=== PATIENT | male | born 1985 | race Hispanic/Latino ===

== ENCOUNTER 2021-12-06 15:06 | Emergency (ER) | payer SELFPAY ==
--- NOTE | 2021-12-06 16:57 | RAD REPORT ---
EXAM DESCRIPTION: RAD - Knee Left 3 View - 12/06/2021 4:28 pm CLINICAL HISTORY: PAINfollowing fall COMPARISON: No comparisons FINDINGS: No fracture, dislocation or periosteal reaction.No joint effusion seen. No joint space ar rowing. No soft tissue abnormality. IMPRESSION: Negative left knee. Clinical concerns for internal derangement or occult bony injury could be further assessed with MR im aging.
--- NOTE | 2021-12-06 16:58 | RAD REPORT ---
EXAM DESCRIPTION: RAD - Tib Fib Left - 12/06/2021 4:28 pm CLINICAL HISTORY: Leg pain following fall COMPARISON: None. FINDINGS: No fracture is identified. There is no dislocation or periosteal reaction noted. No acute or suspicious bony finding. No foreign body or other soft tissue abnormality. IMPRESSION: Negative left tibia & fibula examination.
--- NOTE | 2021-12-06 16:58 | RAD REPORT ---
EXAM DESCRIPTION: RAD - Ankle Left 3 View - 12/06/2021 4:28 pm CLINICAL HISTORY: PAINfollowing fall COMPARISON: No comparisons FINDINGS: No fracture, dislocation or periosteal reaction. No joint effusion seen. No joint space na rrowing. No soft tissue abnormality. There is minimal plantar spur present. IMPRESSION: Negative left ankle for fracture or other acute finding.
--- NOTE | 2021-12-06 17:28 | RAD REPORT ---
EXAM DESCRIPTION: US - Extremity Venous Uni Ltd - 12/06/2021 5:18 pm CLINICAL HISTORY: PAIN COMPARISON: None. TECHNIQUE: Real-time sonographic evaluation of the left lower extremity deep venous system was perfo rmed. FINDINGS: Normal compressibility, flow augmentation, phasic flow and spontaneous flow are identified in the left lower extremity common femoral, superficial femoral, popliteal and posterior tibial vein s. No intraluminal filling defects seen. IMPRESSION: No DVT in the left lower extremity.
--- NOTE | 2021-12-06 17:30 | RAD REPORT ---
EXAM DESCRIPTION: US - Lower Extremity Artery Uni Ltd - 12/06/2021 5:18 pm CLINICAL HISTORY: Pain COMPARISON: No comparisons TECHNIQUE: Doppler evaluation of the left lower extremity arterial tree performed. Waveforms and izabel ocity values were obtained along with visual inspection. FINDINGS: Triphasic waveform pattern seen in the left common femoral and superficial femoral arterie s. A more dampened, biphasic waveform pattern is seen in the left popliteal, dorsalis pedis and popli teal arteries. No occlusion or focal flow restricting lesions seen. No measurable atherosclerotic wal l changes. IMPRESSION: Left lower extremity arterial study shows no significant or suspicious finding.
--- NOTE | 2021-12-06 17:53 | RAD REPORT ---
EXAM DESCRIPTION: CT - Lower Ext Wo Con W/ Mpr - 12/06/2021 5:41 pm CLINICAL HISTORY: ankle injury, leg pain COMPARISON: No comparisons TECHNIQUE: Axial noncontrast 2 millimeter thick images of the obtained from the proximal tibial shaf t through the plantar surface of the left foot. Sagittal and coronal reconstruction images were gener ated and reviewed. All CT scans are performed using dose optimization technique as appropriate and may include automate d exposure control or mA/KV adjustment according to patient size. FINDINGS: No bone or joint abnormality identified. No air or foreign body in the soft tissues. No ab scess or drainable fluid collection. Edema is seen in the subcutaneous fatty tissues of the distal le ft leg and ankle. No skeletal muscle abnormality seen. No significant ligamentous injury suspected. The distal, horizontal portion of the tibialis posterior tendon appear slightly thickened and shaggy. Injury to the tendon cannot be excluded. CT imaging is limited in tendon assessment. The remaining t endons of the foot and ankle show no suspicious or unexpected findings. IMPRESSION: No bone or joint abnormality seen. No abscess, foreign body, air or other emergent soft tissue finding. Edema in the subcutaneous fatty tissues of the distal leg, ankle and foot. Slightly thickened, shaggy appearance to the distal aspect of the tibialis posterior tendon. Tendon i njury cannot be excluded. CT evaluation of tendons is limited.
--- NOTE | 2021-12-06 19:02 | ER ---
Nurse's Notes [facility] Name: Vargas Salmeron Age: 36 yrs Sex: Male : 1985 Arrival Date: 12/06/2021 Time: 15:10 Bed 23 Private MD: Diagnosis: Contusion of left lower leg;Contusion of left ankle Presentation: 12/06 15:50 Chief complaint: Patient states: [place], left ankle injury, was seen iw at [place] yesterday. Coronavirus screen: At this time, the client does not indicate any symptoms associated with coronavirus-19. Ebola Screen: Patient negative for fever greater than or equal to 101.5 degrees Fahrenheit, and additional compatible Ebola Virus Disease symptoms Patient denies exposure to infectious person. Patient denies travel to an Ebola-affected area in the 21 days before illness onset. No symptoms or risks identified at this time. Initial Sepsis Screen: Does the patient meet any 2 criteria? No. Patient's initial sepsis screen is negative. Does the patient have a suspected source of infection? No. Patient's initial sepsis screen is negative. Risk Assessment: Do you want to hurt yourself or someone else? Patient reports no desire to harm self or others. Onset of symptoms. 15:50 Method Of Arrival: Wheelchair iw 15:50 Acuity: VIVEK 3 iw Triage Assessment: 16:10 General: Appears in no apparent distress. Behavior is calm, cooperative. iw Historical: - Allergies: 15:50 No Known Allergies; iw - Immunization history:: Adult Immunizations unknown, . - Social history:: Smoking status: unknown. Screenin:00 Abuse screen: Denies threats or abuse. Denies injuries from another. Nutritional iw screening: No deficits noted. Tuberculosis screening: No symptoms or risk factors identified. Fall Risk Fall in past 12 months (25 points). Assessment: 16:10 General: Appears in no apparent distress. Behavior is calm, cooperative. Pain: iw Complains of pain in left lateral ankle, left Achilles and anterior aspect of left ankle. Neuro: Level of Consciousness is awake, alert, obeys commands, Oriented to person, place, time, situation, Moves all extremities. Derm: Skin is intact, is healthy with good turgor. Musculoskeletal: Range of motion: limited in left ankle. Vital Signs: 15:50 BP 137 / 88; Pulse 104; Resp 16; Temp 97.4; Pulse Ox 100% on R/A; iw 18:00 BP 134 / 78; Pulse 89; Resp 16; Temp 98.0; Pulse Ox 100% on R/A; iw ED Course: 15:10 Patient arrived in ED. am2 15:40 James Solis PA is PHCP. cp 15:40 James Bush MD is Attending Physician. cp 15:51 Triage completed. iw 15:52 Farheen Pryor RN is Primary Nurse. iw 16:30 XRAY Tib Fib LEFT In Process Unspecified. EDMS 16:30 XRAY Knee LEFT 3 view In Process Unspecified. EDMS 16:30 XRAY Ankle LEFT 3 view In Process Unspecified. EDMS 17:19 US Lower Extremity Artery Uni Ltd In Process Unspecified. EDMS 17:19 US Extremity Venous Unilateral Ltd In Process Unspecified. EDMS 17:43 Lower Ext Wo Con W/ Mpr In Process Unspecified. EDMS 18:00 Arm band placed on. iw 18:00 Patient has correct armband on for positive identification. iw 19:00 No provider procedures requiring assistance completed. Patient did not have IV access iw during this emergency room visit. 19:01 Klever Kay MD is Referral Physician. cp Administered Medications: 20:22 Not Given (Patient Refused): morphine 4 mg IM once iw 20:22 Not Given (Patient Refused): Ketorolac 30 mg IM once iw Medication: 19:00 VIS not applicable for this client. iw Outcome: 19:02 Discharge ordered by . cp 19:19 Discharged to home ambulatory, with crutches, with family. iw 19:19 Condition: good 19:19 Discharge instructions given to patient, family, Instructed on discharge instructions, follow up and referral plans. medication usage, Demonstrated understanding of instructions, follow-up care, medications, Prescriptions given X 2. 19:20 Patient left the ED. tw5 Signatures: Dispatcher [employer] Farheen Lantigua RN RN James Solis PA PA cp Nidia Wang am2 Nadine Louis tw5
--- NOTE | 2021-12-06 19:02 | EDPHYS ---
Physician Documentation [facility] Name: Vargas Salmeron Age: 36 yrs Sex: Male : 1985 Arrival Date: 12/06/2021 Time: 15:10 Bed 23 Private MD: ED Physician James Bush HPI: 12/06 16:05 This 36 yrs old Male presents to ER via Wheelchair with complaints of Ankle cp Injury - left. 16:05 The patient presents with an injury. The complaints affect the left ankle, left ankle cp and left lower leg. Onset: The symptoms/episode began/occurred 1 week(s) ago. Context: resulted from a mis-step by the patient, on a slippery surface, The patient can fully bear weight on the affected extremity. can ambulate using a cane. Associated signs and symptoms: Pertinent positives: calf tenderness, numbness, swelling, of the left knee and left lower leg and left ankle and left foot. Historical: - Allergies: 15:50 No Known Allergies; iw - Immunization history:: Adult Immunizations unknown, . - Social history:: Smoking status: unknown. ROS: 16:10 Constitutional: Negative for body aches, chills, fever, poor PO intake. cp 16:10 Eyes: Negative for injury, pain, redness, and discharge. cp 16:10 Neck: Negative for pain with movement, pain at rest, stiffness. 16:10 Cardiovascular: Negative for chest pain, palpitations. 16:10 Respiratory: Negative for cough, shortness of breath, wheezing. 16:10 Abdomen/GI: Negative for abdominal pain, nausea, vomiting, and diarrhea. 16:10 MS/extremity: Positive for injury or acute deformity, ecchymosis, swelling, tenderness, of the left knee and left lower leg and left ankle and left foot. 16:10 Neuro: Negative for altered mental status, headache, numbness, weakness. 16:10 All other systems are negative. Exam: 16:15 Constitutional: The patient appears in no acute distress, alert, awake, non-toxic, well cp developed, well nourished. 16:15 Head/Face: Normocephalic, atraumatic. cp 16:15 Eyes: Periorbital structures: appear normal, Conjunctiva: normal, no exudate, no cp injection, Sclera: no appreciated abnormality, Lids and lashes: appear normal, bilaterally. 16:15 ENT: External ear(s): are unremarkable, Nose: is normal, Mouth: Lips: moist, Oral mucosa: pink and intact, moist, Posterior pharynx: Airway: no evidence of obstruction, patent. 16:15 Neck: ROM/movement: is normal, is supple, without pain, no range of motions limitations.cp 16:15 Chest/axilla: Inspection: normal. 16:15 Cardiovascular: Rate: normal, Rhythm: regular, Pulses: Pulses are 2+ in left dorsalis pedis artery. 16:15 Respiratory: the patient does not display signs of respiratory distress, Respirations: cp normal, no use of accessory muscles, no retractions, labored breathing, is not present, Breath sounds: are clear throughout, no decreased breath sounds, no stridor, no wheezing. 16:15 Abdomen/GI: Exam negative for discomfort, distension, guarding, Inspection: abdomen cp appears normal. 16:15 Back: pain, is absent, ROM is normal. 16:15 Musculoskeletal/extremity: Extremities: grossly normal except: noted in the left knee and left lower leg and left ankle and left foot: ecchymosis, swelling, tenderness, skin intact with no open wounds, ROM: limited passive range of motion due to pain, in the left knee and left ankle, Perfusion: the extremity is normally perfused throughout, the left leg Sensation intact. 16:15 Neuro: Orientation: to person, place \T\ time. Mentation: is normal. Vital Signs: 15:50 BP 137 / 88; Pulse 104; Resp 16; Temp 97.4; Pulse Ox 100% on R/A; iw 18:00 BP 134 / 78; Pulse 89; Resp 16; Temp 98.0; Pulse Ox 100% on R/A; iw MDM: 15:53 Patient medically screened. cp 16:15 Differential diagnosis: fracture, sprain, penetrating trauma, contusion, compartment cp syndrome. 19:00 Data reviewed: vital signs, nurses notes, radiologic studies, CT scan, plain films, cp ultrasound. 19:00 Counseling: I had a detailed discussion with the patient and/or guardian regarding: the cp historical points, exam findings, and any diagnostic results supporting the discharge/admit diagnosis, radiology results, the need for outpatient follow up, a orthopedic surgeon, to return to the emergency department if symptoms worsen or persist or if there are any questions or concerns that arise at home. 19:01 Response to treatment: the patient's symptoms have markedly improved after treatment, cp and as a result, I will discharge patient. 12/06 15:56 Order name: US Lower Extremity Artery Uni Ltd; Complete Time: 18:10 cp 12/06 18:10 Interpretation: Report reviewed. cp 12/06 15:56 Order name: US Extremity Venous Unilateral Ltd; Complete Time: 18:10 cp 12/06 18:10 Interpretation: Report reviewed. cp 12/06 15:56 Order name: XRAY Tib Fib LEFT; Complete Time: 18:10 cp 12/06 18:10 Interpretation: Report reviewed. cp 12/06 15:56 Order name: XRAY Knee LEFT 3 view; Complete Time: 18:10 cp 12/06 18:10 Interpretation: Report reviewed. cp 12/06 16:09 Order name: XRAY Ankle LEFT 3 view; Complete Time: 18:10 cp 12/06 18:11 Interpretation: Report reviewed. cp 12/06 17:00 Order name: Lower Ext Wo Con W/ Mpr; Complete Time: 18:10 EDMS 12/06 18:11 Interpretation: Report reviewed. cp 12/06 18:11 Order name: Crutches; Complete Time: 20:24 cp 12/06 18:11 Order name: Walking boot; Complete Time: 19:12 cp Administered Medications: 20:22 Not Given (Patient Refused): morphine 4 mg IM once iw 20:22 Not Given (Patient Refused): Ketorolac 30 mg IM once iw Disposition Summary: 12/06/21 19:02 Discharge Ordered Location: Home cp Problem: new cp Symptoms: have improved cp Condition: Stable cp Diagnosis - Contusion of left lower leg cp - Contusion of left ankle cp Followup: cp - With: Klever Kay MD - When: 2 - 3 days - Reason: Recheck today's complaints Discharge Instructions: - Discharge Summary Sheet cp - Contusion cp Forms: - Medication Reconciliation Form cp - Thank You Letter cp - Antibiotic Education cp - Prescription Opioid Use cp Prescriptions: - Ibuprofen 800 mg Oral Tablet - take 1 tablet by ORAL route every 8 hours As needed take with food; 30 tablet; cp Refills: 0, Product Selection Permitted - Tylenol-Codeine #3 300 mg-30 mg Oral - take 2 tablet by ORAL route every 8-10 hours; 12 tablet; Refills: 0, Product cp Selection Permitted Signatures: Dispatcher [employer] aFrheen Lantigua RN RN iw James Solis PA PA cp Corrections: (The following items were deleted from the chart) 16:18 15:57 Foot Left 3 View+[email or web address] ordered. JOHNY MCCLAIN
[2021-12-06 19:39] VITALS: BP 137/88; TEMP 97.4; O2SAT 100
== END 2021-12-06 19:20 | disposition home or self-care (01) ==
LOC: ER 15:06
DX: S90.02XA Contusion of left ankle, initial encounter (principal); S80.12XA Contusion of left lower leg, initial encounter
CPT/HCPCS: 73700; 76377; 93926; 93971